=== PATIENT | female | born 1990 | race Caucasian/White ===

== ENCOUNTER 2017-01-23 18:58 | Inpatient (IN) | payer MEDICAID ==
[~2017-01-23] VITALS: Ht 170.2 cm; Wt 145.2 kg
--- NOTE | ~2017-01-23 | DS ---
PATIENT'S NAME: CARMITA COOLEY [facility] AGE: 26 Y [address] ROOM: [id number] [place], [place] [address] LOCATION: GPED ADMIT DATE: 01/23/2017 Discharge Summary DISCHARGE DATE: 01/26/2017 FAMILY PHYSICIAN: Physician, Unknown ATTENDING PHYSICIAN: David Umana CONSULTING PHYSICIAN: Eulalia Bartlett MD. DISCHARGE DIAGNOSES: 1. Choledocholithiasis. 2. Abdominal pain secondary to choledocholithiasis. 3. Transaminitis secondary to choledocholithiasis. 4. Hypokalemia. 5. Urinary tract infection. 6. Hypercholesterolemia. 7. Morbid obesity. 8. Gastroesophageal reflux disease. 9. Depression. HOSPITAL COURSE: Please refer to admitting history and physical as dictated by Dr. Umana. Briefly, the patient was admitted to [facility] after she had recently had a cholecystectomy done on 01/20/2017 at [facility]. She was discharged home. She was have increasing abdominal pain. She was, therefore, admitted to [facility] for further GI evaluation. The patient was started on ertapenem 1 g IV q.24 hours. Percocet was used for pain control. She was started on IV fluids. She did have some complaints of chest pain, this was relieved by a GI cocktail. CT scan PE protocol was negative for PE. She was placed on Lovenox for DVT prophylaxis. Dr. Bartlett was consulted. She was made n.p.o. She underwent ERCP on 01/25/2017. She underwent biliary sphincterotomy with balloon sweep and removal of multiple large cholesterol stones. She was given Indocin suppository while in recovery. She was hydrated with lactated Ringer's. Post ERCP, she had no further abdominal pain or nausea. Her she did have a bowel movement. She felt much better. The following day, her liver enzymes did improve. Bilirubin peaked at 6.5, on the day of discharge 1.9; AST 154; ALT 322. Her potassium did need to be replaced p.o. at times throughout her stay, on the day of discharge3.7. WBCs 11.4. Her vital signs were stable. She was on room air. Lipid panel was done prior to discharge, it did reveal a total cholesterol of 255, triglycerides 83, HDL 43, LDL 196. She was placed on Lipitor 40 mg p.o. q.h.s. with a followup lipid panel in 6 weeks with her primary care provider. She also did meet with the dietitian regarding low-fat, low-cholesterol diet teaching prior to her discharge. On 01/26/2017, the patient's vital signs were stable. She had improved. She had no further abdominal pain. She should follow up with primary care provider in 3 days. I did call and speak with Dr. Payne prior to the patient's PATIENT'S NAME: CARMITA COOLEY [facility] AGE: 26 Y [address] ROOM: [address] [place] [id number] LOCATION: GPED ADMIT DATE: 01/23/2017 Discharge Summary DISCHARGE DATE: 01/26/2017 FAMILY PHYSICIAN: Physician, Unknown ATTENDING PHYSICIAN: David Umana A discharge, as he is whom she had chosen for followup care. LABORATORY DATA: Sodium remained stable at 138 to 140, potassium ranged from 3.5 to 3.8, calcium 8.6, BUN 11 to 7, creatinine 0.8 upon admit and 0.7 prior to discharge. Total bilirubin upon admit 5.5, it did reach as high as 6.5, was 1.9 prior to discharge. Alkaline phosphatase 621 upon admit, prior to discharge 573. AST 240 upon admit, it did increase to 313, prior to discharge 154. ALT 391 upon admit, at its peak 401, was 322 prior to discharge. GFR remained greater than 60. Lipid panel, please refer to hospital course. WBCs upon admit 11.0, prior to discharge 11.4; hemoglobin 10.2 to 11.9; hematocrit 31.4 to 37.0; platelets remained stable at 232. Urine; leukocytes negative, nitrites negative, ketones 15, blood negative. RADIOLOGY REPORTS: CT of the chest done for PE protocol revealed no CT findings of pulmonary embolism, dependent atelectasis at left lung base. CT scan of the abdomen and pelvis shows postop changes of recent gallbladder resection, fluid and streaky increased attenuation in the mesentery of the gallbladder fossa in the area of the duodenum consistent with recent surgery, no walled-off abscess collection. Intrahepatic and extrahepatic biliary dilation, common bile duct did measure 13 mm, no stones are identified in the common bile duct on the CT scan. Ultrasound of the abdomen revealed surgically absent gallbladder and intrahepatic and extrahepatic biliary dilation with no common bile duct stones seen. DISCHARGE INSTRUCTIONS: The patient will be discharged to home. Diet; low fat, low cholesterol. Follow up with Dr. Payne in 3 days with CBC and CMP at that time. Activity, as tolerated. DISCHARGE MEDICATIONS: 1. K-Tab 10 mEq p.o. daily. 2. Protonix 40 mg p.o. at bedtime. 3. Feosol 325 mg p.o. daily. 4. Lexapro 5 mg 1 tablet p.o. daily. 5. Lipitor 40 mg p.o. q.h.s. 6. Percocet 5/325 one tablet p.o. every 6 hours as needed for severe pain. Fasting lipid panel in three months, 04/28/2017. Thank you for allowing us to participate in the care of this patient as she has been hospitalized at [facility]. Time spent at the bedside as well as coordinating care 35 minutes. [facility] 26 [facility] [address] ROOM: [place] [address] LOCATION: GPED ADMIT DATE: 01/23/2017 Discharge Summary DISCHARGE DATE: 01/26/2017 FAMILY PHYSICIAN: Physician, Unknown ATTENDING PHYSICIAN: David Umana DENI NARANJO APRN FOR MD FAISAL OSMAN/deisyl /[id number] CC: MD Frankie De La Paz MD d: 01/27/17 0249 t: 02/01/17 0831, DISCHARGE SUMMARY
--- NOTE | ~2017-01-23 | HP ---
PATIENT'S NAME: LYNDA COOLEYOSHA Delta [facility] AGE: 26 Y [address] ROOM: [place] [address] LOCATION: GPED ADMIT DATE: 01/23/2017 History & Physical DISCHARGE DATE: FAMILY PHYSICIAN: PHYSICIAN, UNKNOWN ATTENDING PHYSICIAN: CARLOS KERR DATE OF SERVICE: 01/23/2017 CHIEF COMPLAINT: Abdominal pain. HISTORY OF PRESENT ILLNESS: This is a 26-year-old morbidly obese lady with a past medical history of iron- deficiency anemia, recently had cholecystectomy done on 01/20/2017 at [facility]. Postprocedure, she was discharged to home, but she continued to have abdominal pain, which necessitated a visit to emergency department at the same hospital. A CAT scan at that point was done and she was discharged home. She was also found to have a urinary tract infection with E. coli and was being treated with Ciprofloxacin. Her symptoms continued to get worse in terms of increasing abdominal pain, which is located in the epigastric as well as right upper quadrant, sharp in character, present all the time, 05/23, associated with nausea and vomiting and multiple episodes of nonbilious nonbloody emesis today. She denied having fever, chills, or dizziness. She did endorse running sharp chest pain as well when she gets the right upper quadrant pain. She did not have any extremity swelling, but did endorse having burning on urination and difficulty urinating and inability to empty her bladder as well. REVIEW OF SYSTEMS: All other systems reviewed and were negative except what is mentioned in the HPI. ALLERGIES: THE PATIENT DOES NOT HAVE KNOWN DRUG ALLERGIES. SHE STATES SHE WAS ITCHING AFTER SHE GOT MORPHINE LAST TIME. PAST MEDICAL HISTORY: Iron-deficiency anemia, hypokalemia, recent cholecystectomy, and morbid obesity. MEDICATIONS: Usually she receives KCl as well as iron pills at home. Recently, she had been getting ciprofloxacin for her UTI. SOCIAL HISTORY: PATIENT'S NAME: LYNDA COO[facility]YR [facility] AGE: 26 Y [address] ROOM: [place] [address] LOCATION: GPED ADMIT DATE: 01/23/2017 History & Physical DISCHARGE DATE: FAMILY PHYSICIAN: PHYSICIAN, UNKNOWN ATTENDING PHYSICIAN: CARLOS KERR Smokes 4 to 5 cigarettes a day for the past 4 years. No alcohol or drug abuse. FAMILY HISTORY: Positive for hypertension in father. PHYSICAL EXAMINATION: VITAL SIGNS: Blood pressure 112/81, 16, afebrile, 72. GENERAL: In mild acute distress due to pain. Alert and oriented x3. HEENT: Head: Atraumatic and normocephalic. Eyes: Nonicteric. No pallor. Oropharynx: Moist mucous membranes. CARDIOVASCULAR: S1 and S2. No murmurs, gallops, or rubs. LUNGS: Clear to auscultation bilaterally. ABDOMEN: Soft. Laparoscopic incision aguilera noted. Mild tenderness in the right upper quadrant. Bowel sounds are present. EXTREMITIES: No cyanosis, clubbing, or edema. SKIN: Multiple tattoos noted. No rashes noted. PSYCH: Normal affect, mood, and speech. NEURO: Cranial nerves II through XII intact. No motor or sensory deficit. MUSCULOSKELETAL: No muscle tenderness or joint swelling noted. CT scan was again performed here at the [facility], which showed changes consistent with a recent cholecystectomy as well as mild biliary dilatation. No pulmonary embolism was found as it was one of the suspicion by the emergency physician. Lab work was done in the emergency department, which showed rising liver enzymes as compared to the lab work obtained 2 days ago at the [facility] Emergency Department with alkaline phosphatase of 621 today. AST and ALT 240 and 391 respectively with bilirubin of 5.5. She had bilirubin 3.7 two days ago, alkaline phosphatase of 341 with AST and ALT of 190 and 301. Lipase and amylase levels were checked, which were negative. ASSESSMENT: 1. Elevated liver enzymes. 2. Likely biliary obstruction. 3. Iron-deficiency anemia. 4. Morbid obesity. 5. Urinary tract infection. PLAN: We are going to admit this patient and start some intravenous fluid resuscitation. Given the low sensitivity of CAT scan to diagnose biliary obstruction as well as choledocholithiasis, we are going to perform right upper quadrant scan tonight. Based on that, we will consult Gastroenterology. PATIENT'S NAME: CARMITA COOLEY [facility] AGE: 26 Y [address] ROOM: [place] [address] LOCATION: [facility] ADMIT DATE: 01/23/2017 History & Physical DISCHARGE DATE: FAMILY PHYSICIAN: PHYSICIAN, UNKNOWN ATTENDING PHYSICIAN: CARLOS KERR Serial monitoring of the lab work will be done. We will provide adequate analgesia. Likelihood of cholangitis is low at this point. I am going to start her on IV antibiotics for her urinary tract infection, though urinalysis is now negative as compared to 2 days ago. DVT prophylaxis with Lovenox. SCDs. The patient is full code. MD ILIANA BARR/holland /[id number] D: 253 T: 811 HISTORY & PHYSICAL
--- NOTE | ~2017-01-23 | CON ---
PATIENT'S NAME: CAROLE GIMENEZ [facility] AGE: 26 Y [address] ROOM: [place] [id number] LOCATION: GPED ADMIT DATE: 01/23/2017 Consultation DISCHARGE DATE: FAMILY PHYSICIAN: PHYSICIAN, UNKNOWN ATTENDING PHYSICIAN: CARLOS KERR REASON FOR CONSULT: ERCP. HISTORY OF PRESENT ILLNESS: Caorle Gimenez is a 26-year-old obese female who was admitted in view of persistent nausea, vomiting, abdominal pain, status post lap reji done in [place] on January 20. The patient presented to her local emergency room whereby she was discharged, and in view of persistent symptoms, ended up at this hospital. She was addressed by the hospitalist and was found to have UTI, placed on antibiotics. Total bilirubin was found to be 5.5, with elevated AST/ALT of 240 and [address] scan of the abdomen revealed evidence of post cholecystectomy state with evidence of fluid in the gallbladder fossa without any definitive biloma or abscess; however, her common bile duct was dilated at 12 mm, and therefore, I was consulted in regard to possibility of choledocholithiasis. The patient has had ongoing symptoms with abdominal discomfort, some chest discomfort, and appropriate studies have excluded any cardiopulmonary etiology. PAST MEDICAL HISTORY: Otherwise unremarkable except for morbid obesity. PAST SURGICAL HISTORY: Recent lap reji, remote tonsillectomy. MEDICATIONS AT HOME: 1. Potassium. 2. "Iron pills.". 3. Presently placed on antibiotics and pain medications. ALLERGIES: STATED TO CODEINE. SOCIAL HISTORY: Smokes half pack per day for the last 4 to 5 years. Denies alcohol use. FAMILY HISTORY: High blood pressure. REVIEW OF SYSTEMS: The 10-point review of system otherwise negative. PATIENT'S NAME: CAROLE GIMENEZ [facility] AGE: 26 Y [address] ROOM: [address] [address] LOCATION: GPED ADMIT DATE: 01/23/2017 Consultation DISCHARGE DATE: FAMILY PHYSICIAN: PHYSICIAN, UNKNOWN ATTENDING PHYSICIAN: CARLOS KERR PHYSICAL EXAMINATION: GENERAL: Well-developed well-nourished female, in no acute distress. She is sitting upright, alert and oriented. HEENT: Nonicteric sclerae. Pupils round and reactive. NECK: Supple without palpable nodes. CHEST: Clear to auscultation. HEART: S1 and S2 normal. ABDOMEN: Obese with mild diffuse tenderness. Evidence of recent laparoscopy cholecystectomy. Bowel sounds are decreased. EXTREMITIES: No edema. NEUROLOGIC: Awake, alert, appropriate without any focal deficits. LABS: CT scan and abdominal ultrasound as noted above. ASSESSMENT AND PLAN: A 26-year-old female presenting with abdominal pain, nausea, vomiting, and jaundice with elevated transaminases as well as abdominal ultrasound and CT scan of the abdomen showing dilated common bile duct at 12 mm with evidence of fluid collection in the gallbladder fossa. Considerations include possibility of bile like in association with choledocholithiasis. The patient is agreeable to undergo ERCP. Procedure risks, complications are discussed. Possibility of biliary stent is discussed. Thank you for this consult. JOSÉ MCKNIGHT MD AM/holland /[id number] d: 01/24/17 2257 t: 01/25/17 0811, CONSULTATION REPORT
--- NOTE | ~2017-01-23 | ER ---
[facility] AGE: 26 Y [address] ROOM: [place] [address] LOCATION: GPED ADMIT DATE: 01/23/2017 ER/Outpatient Report DISCHARGE DATE: FAMILY PHYSICIAN: PHYSICIAN, UNKNOWN ATTENDING PHYSICIAN: CARLOS UMANA Time of Arrival: 1858 hours. Time of Evaluation: 1920 hours. CHIEF COMPLAINT: This is a 26-year-old female previously reasonably healthy. She is in with complaint of chest pain, abdominal pain and shortness of breath after cholecystectomy. HISTORY OF PRESENT ILLNESS: She reports that she had a laparoscopic cholecystectomy 3 days ago, was discharged subsequent to that. She was readmitted due to vomiting, increasing abdominal pain, increasing liver enzymes. She is discharged earlier today from the [facility] and presented herself here because she states she began vomiting essentially at the time of her discharge. PAST MEDICAL HISTORY: She has no chronic medical problems. CURRENT MEDICATIONS: See list. REVIEW OF SYSTEMS: Otherwise negative. SOCIAL HISTORY: She is a nonsmoker. PHYSICAL EXAMINATION: GENERAL: Alert, obese female who appeared to be quite uncomfortable. She is tachycardic and tachypneic in moderate distress. SKIN: Warm and dry. Color is pale. She is hypertensive. HEAD, EARS, EYES, NOSE, AND THROAT: Revealed mild scleral icterus, otherwise normal. NECK: Supple. HEART: Normal. LUNGS: Normal. ABDOMEN: Quite tender diffusely. Her incisions were clean and dry. Bowel sounds are present, but diminished. EXTREMITIES: Normal. NEUROLOGIC: Normal. [facility]GE[facility] 26 Y [address] ROOM: [address] [address] LOCATION: GPED ADMIT DATE: 01/23/2017 ER/Outpatient Report DISCHARGE DATE: FAMILY PHYSICIAN: PHYSICIAN, UNKNOWN ATTENDING PHYSICIAN: CARLOS UMANA LABORATORY DATA: Metabolic panel revealed elevated bilirubin of greater than 5. Liver enzymes were also elevated. ASSESSMENT: Postoperative abdominal pain/probable retained common bile duct stone. PLAN: Admit to Dr. Umana. Dr. Umana was called, who arrived promptly, evaluated the patient and made arrangements to admit the patient. MD JULIETTE VOGEL/modl /[id number] d: 01/24/17 0819 t: 02/21/17 0957, OUTPATIENT REPORT
[2017-01-23 19:33] LABS: BILIRUBIN URINE NEGATIVE (NEGATIVE); BLOOD URINE NEGATIVE /UL (NEGATIVE); COLOR URINE YELLOW (YELLOW); GLUCOSE URINE NEGATIVE (NEGATIVE); KETONE URINE 15 mg/dL (NEGATIVE); LEUKOCYTES URINE NEGATIVE /UL (NEGATIVE); NITRITE URINE NEGATIVE (NEGATIVE); PROTEIN URINE NEGATIVE (NEGATIVE); TURBIDITY URINE CLEAR (CLEAR); UROBILINOGEN URINE NORMAL (NORMAL)
[2017-01-23 19:39] LABS: BASOPHIL % 0.4 %; EOSINOPHIL # 0.1 K/uL (0.0-0.5); EOSINOPHIL % 0.9 %; HEMOGLOBIN 11.9 g/dL (11.0-15.0); IMMATURE GRANULOCYTE # 0.1 K/uL (0.0-0.3); IMMATURE GRANULOCYTE % 0.5 %; LYMPHOCYTE # 1.9 K/uL (0.8-4.0); LYMPHOCYTE % 17.4 %; MCH 25.1 pg (27.0-34.0); MCHC 32.2 gm/dL (32.0-36.5); MCV 78.1 fl (83.0-98.0); MONOCYTE # 0.6 K/uL (0.0-1.0); MONOCYTE % 5.4 %; MPV 11.9 fl (9.4-12.4); NEUTROPHIL # (ANC) 8.3 K/uL (1.8-7.8); NEUTROPHIL % 75.4 %; NRBC % 0 /100WBC (0-0.00); PLATELET COUNT 309 K/uL (150-450); RBC 4.74 M/uL (3.50-5.00); RDW-CV 19.3 % (11.9-14.6)
[2017-01-23 19:55] LABS: ALBUMIN 3.3 gm/dL (3.5-5.0); ANION GAP 14.6 (10.0-19.0); AST 240 IU/L (10-40); BLOOD UREA NITROGEN 7 mg/dL (6-24); CALCIUM 9.2 mg/dL (8.5-10.5); CHLORIDE 102 mMol/L (96-110); CO2 25 mMol/L (22-32); CREATININE 0.8 mg/dL (0.5-1.1); ESTIMATED GFR (MDRD EQUATION) > 60; POTASSIUM 3.6 mMol/L (3.7-5.1); SODIUM 138 mMol/L (135-145); TOTAL BILIRUBIN 5.5 mg/dL (0.0-1.5); TOTAL PROTEIN 7.9 g/dL (6.0-8.4)
[2017-01-23 20:03] LABS: ALK PHOS 621 IU/L (33-138); ALT 391 IU/L (12-78)
--- NOTE | 2017-01-23 23:50 | NUR ---
Patient just had gallbladder removed in [place] on the 8th. Sent home the same day but developed nausea, vomiting and abdominal pain with feelings of shortness of breath. States she has a UTI. Went to the ER there twice for medications and fluids. Came in to ER here this evening with same complaints. Stated she has vomited x8 today with nausea and one bloody emesis, has not been able to eat for 4 days with an 18lb weight loss since surgery. Probable stone. History of depression, anxiety, PTSD, and ADHD. States she was supposed to have a med appt at [facility] in [facility] but states she only takes potassium at home. Has 3 children. GI consult in am for possible ERCP.
[2017-01-24] MEDS ORDERED: FEOSOL325 MG PO (00:43)
[2017-01-24] MEDS ORDERED: K-TAB ER20 MEQ PO (00:43)
--- NOTE | 2017-01-24 03:39 | NUR ---
Significant Event: Patient alert and oriented x3. Gets up with standby assist. Slightly hypertensive but other vitals stable. Reports shortness of breath at rest, lungs clear to clear/dim, and no cough heard. NS running through right upper arm midline with good blood return. Has 4 healed incisions to abdomen. Bowel sounds rare, guarding present, not passing gas. Reports nausea but no emesis and nothing given. Pt has aching type pain all over abdomen but more so in the LUQ and RLQ with some epigastric pain. Magic mouthwash given. 1mg morphine and 1 percocet given since being admitted with pain rating 6-8/10 but has been resting and sleeping. Appears anxious at times. Cooperative with cares Follow up: GI consult today for possible ERCP, RUQ scan to be done this evening, monitor pain, NPO except for meds
[2017-01-24 06:16] LABS: BASOPHIL % 0.2 %; EOSINOPHIL # 0.1 K/uL (0.0-0.5); EOSINOPHIL % 1.6 %; HEMOGLOBIN 10.7 g/dL (11.0-15.0); IMMATURE GRANULOCYTE % 0.3 %; LYMPHOCYTE # 1.7 K/uL (0.8-4.0); LYMPHOCYTE % 18.3 %; MCH 25.4 pg (27.0-34.0); MCHC 32.4 gm/dL (32.0-36.5); MCV 78.4 fl (83.0-98.0); MONOCYTE # 0.6 K/uL (0.0-1.0); MONOCYTE % 6.4 %; MPV 11.9 fl (9.4-12.4); NEUTROPHIL # (ANC) 6.6 K/uL (1.8-7.8); NEUTROPHIL % 73.2 %; NRBC % 0 /100WBC (0-0.00); PLATELET COUNT 248 K/uL (150-450); RBC 4.21 M/uL (3.50-5.00); RDW-CV 19.6 % (11.9-14.6)
[2017-01-24 06:36] LABS: ALBUMIN 2.7 gm/dL (3.5-5.0); ANION GAP 12.8 (10.0-19.0); AST 313 IU/L (10-40); BLOOD UREA NITROGEN 7 mg/dL (6-24); CALCIUM 8.7 mg/dL (8.5-10.5); CHLORIDE 104 mMol/L (96-110); CO2 25 mMol/L (22-32); CREATININE 0.7 mg/dL (0.5-1.1); POTASSIUM 3.8 mMol/L (3.7-5.1); SODIUM 138 mMol/L (135-145); TOTAL BILIRUBIN 5.8 mg/dL (0.0-1.5); TOTAL PROTEIN 6.6 g/dL (6.0-8.4)
[2017-01-24 06:39] LABS: ALK PHOS 578 IU/L (33-138); ALT 396 IU/L (12-78); ESTIMATED GFR (MDRD EQUATION) > 60
[2017-01-24] MEDS ORDERED: BACTRIM DS1 TAB PO (08:30)
[2017-01-24] MEDS ORDERED: LEXAPRO20 MG PO (08:31)
--- NOTE | 2017-01-24 18:00 | NUR ---
Significant Event: Abdomen is soft. Scabbed incision sites x4 without redness. Complains of right upper quadrant pain and some epigastric pain. Percocet 2 tabs given last at 1800 and Zofran given prior to the percocet for nausea. She reports the GI cocktail really helped last night and the tight feeling in chest is gone. Lungs clear in the upper lobes and clear/diminished in the bases. VSS on room air, no cough. RT instructed in use of IS. Taking clear liquids without vomiting. Urine is a dark fabiola. Dr Sequeira in and discussed procedure with patient. Follow up:NPO after MN for procedure in am.
--- NOTE | 2017-01-25 03:04 | NUR ---
Significant Event:PT AAOX3.PLEASANT WITH STAFF AND CARES.UP WITH STAND BY ASSIST.GAIT STEADY.USES CALL LIGHT APPROP.COMPLAIN OF NASUEA, PRN ZOFRAN GIVEN LAST AT 2400,PT HAS BEEN SLEEPING SINCE THAT TIME. MIDLINE TO RIGHT UPPER AR. RUNNING LR AT 125ML/HR WHICH WILL BE CHANGED TO 200ML/HR AT 0800.PT TAKES MEDICATION WHOLE WITH NO COMPLICATIONS.VSS.INCSION TO ABDOMEN X4 SITES.OPEN TO AIR WITH NO COMPLICAITONS NOTED. PT URINE VERY DARK TEA COLORED.DID HAVE SMALL BM AT HS. NPO SINCE 2400 LAST NIGHT. VSS.LS CLEAR/DIMINISHED. Follow up:ERCP TOMORROW AM.
[2017-01-25 06:29] LABS: BASOPHIL % 0.5 %; EOSINOPHIL # 0.2 K/uL (0.0-0.5); EOSINOPHIL % 2.8 %; HEMATOCRIT 31.8 % (33.0-46.0); HEMOGLOBIN 10.3 g/dL (11.0-15.0); IMMATURE GRANULOCYTE % 0.3 %; LYMPHOCYTE # 1.9 K/uL (0.8-4.0); LYMPHOCYTE % 23.7 %; MCH 25.2 pg (27.0-34.0); MCHC 32.4 gm/dL (32.0-36.5); MCV 77.8 fl (83.0-98.0); MONOCYTE # 0.6 K/uL (0.0-1.0); MONOCYTE % 6.9 %; MPV 12.2 fl (9.4-12.4); NEUTROPHIL # (ANC) 5.3 K/uL (1.8-7.8); NEUTROPHIL % 65.8 %; NRBC % 0 /100WBC (0-0.00); PLATELET COUNT 227 K/uL (150-450); RBC 4.09 M/uL (3.50-5.00); RDW-CV 20.1 % (11.9-14.6)
[2017-01-25 06:40] LABS: ALBUMIN 2.5 gm/dL (3.5-5.0); ANION GAP 13.5 (10.0-19.0); AST 298 IU/L (10-40); BLOOD UREA NITROGEN 7 mg/dL (6-24); CALCIUM 8.6 mg/dL (8.5-10.5); CHLORIDE 104 mMol/L (96-110); CO2 26 mMol/L (22-32); CREATININE 0.6 mg/dL (0.5-1.1); ESTIMATED GFR (MDRD EQUATION) > 60; POTASSIUM 3.5 mMol/L (3.7-5.1); SODIUM 140 mMol/L (135-145); TOTAL BILIRUBIN 6.5 mg/dL (0.0-1.5); TOTAL PROTEIN 6.3 g/dL (6.0-8.4)
[2017-01-25 06:44] LABS: ALK PHOS 662 IU/L (33-138); ALT 401 IU/L (12-78)
--- NOTE | 2017-01-25 16:12 | NUR ---
Met with patient at bedside today. Introduced myself and the role of the CM department. Patient was independent with her ADL's prior to this hospitalization. She does not anticipate having any discharge needs. Will continue to follow.
--- NOTE | 2017-01-26 05:11 | NUR ---
Significant Event:Ambulated in halls last evening with standby assist. Steady on feet. Ate all of supper & hs snacks. Is slightly jaundice & sclera are jaundiced. Has the 4 healing scabbed sites to her abdomen. Voids tea colored urine. Did take 2 Percocet this morning @ 0323 & appears to be resting well now.
[2017-01-26 05:56] LABS: BASOPHIL % 0.4 %; EOSINOPHIL # 0.2 K/uL (0.0-0.5); EOSINOPHIL % 1.7 %; HEMATOCRIT 31.4 % (33.0-46.0); HEMOGLOBIN 10.2 g/dL (11.0-15.0); IMMATURE GRANULOCYTE # 0.1 K/uL (0.0-0.3); IMMATURE GRANULOCYTE % 0.5 %; LYMPHOCYTE # 2.5 K/uL (0.8-4.0); LYMPHOCYTE % 21.6 %; MCH 25.5 pg (27.0-34.0); MCHC 32.5 gm/dL (32.0-36.5); MCV 78.5 fl (83.0-98.0); MONOCYTE # 0.8 K/uL (0.0-1.0); MPV 11.6 fl (9.4-12.4); NEUTROPHIL # (ANC) 7.8 K/uL (1.8-7.8); NEUTROPHIL % 68.8 %; NRBC % 0 /100WBC (0-0.00); PLATELET COUNT 232 K/uL (150-450); RDW-CV 20.4 % (11.9-14.6); WBC 11.4 K/uL (4.0-11.0)
[2017-01-26 06:13] LABS: ALBUMIN 2.5 gm/dL (3.5-5.0); ANION GAP 11.7 (10.0-19.0); AST 154 IU/L (10-40); CALCIUM 8.6 mg/dL (8.5-10.5); CHLORIDE 105 mMol/L (96-110); CO2 26 mMol/L (22-32); CREATININE 0.7 mg/dL (0.5-1.1); ESTIMATED GFR (MDRD EQUATION) > 60; POTASSIUM 3.7 mMol/L (3.7-5.1); SODIUM 139 mMol/L (135-145); TOTAL PROTEIN 6.4 g/dL (6.0-8.4)
[2017-01-26 06:16] LABS: ALK PHOS 573 IU/L (33-138); ALT 322 IU/L (12-78); BLOOD UREA NITROGEN 11 mg/dL (6-24); TOTAL BILIRUBIN 1.9 mg/dL (0.0-1.5)
[2017-01-26] MEDS ORDERED: PROTONIX40 MG PO (10:03)
[2017-01-26] MEDS ORDERED: PERCOCET 5-3251 EACH PO (10:05)
[2017-01-26] MEDS ORDERED: LIPITOR40 MG PO (10:06)
--- NOTE | 2017-01-26 11:35 | NUR ---
CONSULT RECEIVED FOR LOW FAT, LOW CHOLESTEROL DIET ED. DISCUSSED WAYS TO DECREASE FAT AND CHOLESTEROL INTAKE. DISCUSSED LOWER FAT & CHOLESTEROL FOODS. PROVIDED WRITTEN INFO AND RD CONTACT INFO. ENC TO CALL WITH QUESTIONS. WILL ASSIST NEEDED.
--- NOTE | 2017-01-26 13:27 | NUR ---
Met with patient this morning as there was concern that she lost her Medicaid and she has a number of medications that she needs to stay on. When I met with her she informed me and Janine Crowe that she got her Medicaid situation figured out and will be able to get her medications without any problems. Patient will be discharging to home this afternoon.
--- NOTE | 2017-01-26 19:58 | NUR ---
Significant event: Ambulating in vyas. Voiding large amounts of urine. eating and drinking well. Denies pain and nausea. Dimsissal instructions given and dismissed to home.
--- NOTE | 2017-01-26 20:03 | NUR ---
D: IV discontinued per Lenin Huntley RN without difficlutly.
[2017-06-03] MEDS ORDERED: AMOXICILLIN250 MG PO (11:20)
[2017-06-03] MEDS ORDERED: PROZAC10 MG PO (11:21)
[2017-06-03] MEDS ORDERED: PRENATAL 1+1)(P1 TAB PO ×2 (11:21→11:22)
== END 2017-01-26 15:10 | disposition disaster alternative care site (69) | DRG 445 ==
LOC: GMED 18:58 → G3N 21:41 → GPED 21:41
PROVIDERS: Emergency Medicine; Nurse Practitioner Family; ADMIT Internal Medicine
PROC: 0FC98ZZ Extirpation of Matter from Common Bile Duct, Via Natural or Artificial Opening Endoscopic (ICD-10-PCS; principal; 2017-01-25)
DX: K80.50 Calculus of bile duct without cholangitis or cholecystitis without obstruction (principal); N39.0 Urinary tract infection, site not specified; Z68.43 Body mass index [BMI] 50.0-59.9, adult; J98.11 Atelectasis; E66.01 Morbid (severe) obesity due to excess calories; R74.0 Nonspecific elevation of levels of transaminase and lactic acid dehydrogenase [LDH]; D50.9 Iron deficiency anemia, unspecified; E87.6 Hypokalemia; B96.20 Unspecified Escherichia coli [E. coli] as the cause of diseases classified elsewhere; E78.00 Pure hypercholesterolemia, unspecified; K21.9 Gastro-esophageal reflux disease without esophagitis; F32.9 Major depressive disorder, single episode, unspecified; Z90.49 Acquired absence of other specified parts of digestive tract
CPT/HCPCS: C1751; C1769; J1100; J1170; J1335; J1650; J2270; J2405; J2765; J3010; J7120; Q9967

== ENCOUNTER 2017-02-06 15:04 | Emergency (ER) | payer MEDICAID ==
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
[~2017-02-06 15:04] MED LIST: BACTRIM DS1 TAB PO; FEOSOL325 MG PO; K-TAB ER20 MEQ PO; LEXAPRO20 MG PO; LIPITOR40 MG PO; PERCOCET 5-3251 EACH PO; PROTONIX40 MG PO
[2017-06-03] MEDS ORDERED: AMOXICILLIN250 MG PO (11:20)
[2017-06-03] MEDS ORDERED: PROZAC10 MG PO (11:21)
[2017-06-03] MEDS ORDERED: PRENATAL 1+1)(P1 TAB PO ×2 (11:21→11:22)
== END 2017-02-06 16:16 | disposition disaster alternative care site (69) ==
LOC: GMED 15:04
DX: Z48.01 Encounter for change or removal of surgical wound dressing (principal); F17.210 Nicotine dependence, cigarettes, uncomplicated; Z88.8 Allergy status to other drugs, medicaments and biological substances; Z90.89 Acquired absence of other organs; Z98.890 Other specified postprocedural states

== ENCOUNTER 2017-04-28 18:14 | Emergency (ER) | payer MEDICAID ==
--- NOTE | ~2017-04-28 | ER ---
PATIENT'S NAME: CARMITA COOLEY [facility] AGE: 27 Y [address] ROOM: [place] [address] LOCATION: ED ADMIT DATE: 04/28/2017 ER/Outpatient Report DISCHARGE DATE: 04/28/2017 FAMILY PHYSICIAN: Frankie Payne MD ATTENDING PHYSICIAN: Trinity Clark HISTORY OF PRESENT ILLNESS: This is a 27-year-old female, who presents today with chief complaint of abdominal pain. She has had it since her surgery in January. She is status post cholecystectomy and it was complicated by a common bile duct stone. She states that she is feeling contractions in her left upper quadrant epigastric area. It is cramping, sharp, and feels full. She has had vomiting every 2 to 3 hours. She has been constipated for the last 3 days. She is allergic to Coumadin. She has been taking a lot of Percocet and tramadol for this gallbladder pain. Her current pain is 6/10. No fever or chills. No other complaints at this time. PAST MEDICAL HISTORY: Includes gallstones. SURGICAL HISTORY: Includes cholecystectomy, , tonsillectomy. SOCIAL HISTORY: She does not smoke cigarettes. She does marijuana and alcohol occasionally. MEDICATIONS: Please see med list. ALLERGIES: TO CODEINE. REVIEW OF SYSTEMS: Reviewed by me and negative with the exception of those discussed in HPI. PHYSICAL EXAMINATION: VITAL SIGNS: She is 5 feet 8 inches. She is 330 pounds. Blood pressure 125/90, heart rate 94, respiratory rate 18, saturations are 97% on room air, temperature is 97.6. GENERAL: The patient is morbidly obese. She does not appear in any acute distress. She walked into the ER. She is not actively vomiting or retching. She has moist mucous membranes. Does not appear lethargic or dehydrated. Alert and oriented x4. GCS is 15. HEART: Heart rate is regular rate and rhythm. LUNGS: Lung sounds are clear. PATIENT'S NAME: CARMITA COOLEY [facility] AGE: 27 Y [address] ROOM: [place] [address] LOCATION: [facility] ADMIT DATE: 04/28/2017 ER/Outpatient Report DISCHARGE DATE: 04/28/2017 FAMILY PHYSICIAN: Frankie Payne MD ATTENDING PHYSICIAN: Trinity Clark ABDOMEN: Morbidly obese. No epigastric tenderness. Some mild left upper quadrant tenderness. No right upper quadrant tenderness. No right lower quadrant tenderness. No left lower quadrant tenderness. No suprapubic tenderness. Negative Rogers sign. SKIN: Warm, dry, and intact, and she appears well. EMERGENCY ROOM COURSE: We gave the patient Zofran and Bentyl. We checked UA, urine , CBC, CMP, lactic, and procalcitonin. We did an x-ray. UA shows 100 leukocytes. Negative HCG. Lactic is 1.4. WBC is 7.1, H and H are 11.4/35.8, platelets are 234. No bandemia. No left shift. Sodium is 144, potassium 3.7, chloride 113, bicarb 25, anion gap 9.7, glucose 96, BUN 10, creatinine 0.8. Bilirubin is 0.2 which is improved from the 1.9 from when she was last time, alkaline phosphatase is 98, AST is 12, ALT is 17. GFR greater than 60. Lipase is 112. Procalcitonin is less than 0.05. We also did x-ray abdomen. It shows she has a lot of constipation, especially, in her left descending colon and the transverse colon with gas. There are no fluid levels. I think this is just an acute case of constipation, not bowel obstruction. We discussed this with the patient. We will give her some Zofran. We will also treat her with some Macrobid for UTI as she says she is symptomatic and told her to take some magnesium citrate and stop taking the narcotics. She will follow up with her primary care doctor as needed. IMPRESSION: Urinary tract infection, constipation. MD PATRICIA MILLIGAN/modl /[id number] d: 04/29/17 0343 t: 04/29/171955, OUTPATIENT REPORT
[2017-04-28 18:55] LABS: BASOPHIL % 0.3 %; EOSINOPHIL # 0.1 K/uL (0.0-0.5); EOSINOPHIL % 0.8 %; HEMATOCRIT 35.8 % (33.0-46.0); HEMOGLOBIN 11.4 g/dL (11.0-15.0); IMMATURE GRANULOCYTE % 0.1 %; LYMPHOCYTE % 27.8 %; MCH 26.1 pg (27.0-34.0); MCHC 31.8 gm/dL (32.0-36.5); MCV 81.9 fl (83.0-98.0); MONOCYTE # 0.5 K/uL (0.0-1.0); MONOCYTE % 6.8 %; MPV 11.7 fl (9.4-12.4); NEUTROPHIL # (ANC) 4.5 K/uL (1.8-7.8); NEUTROPHIL % 64.2 %; NRBC % 0 /100WBC (0-0.00); PLATELET COUNT 234 K/uL (150-450); RBC 4.37 M/uL (3.50-5.00); WBC 7.1 K/uL (4.0-11.0)
[2017-04-28 18:57] LABS: RDW-CV 15.3 % (11.9-14.6)
[2017-04-28 18:58] LABS: BLOOD URINE NEGATIVE /UL (NEGATIVE); COLOR URINE YELLOW (YELLOW); GLUCOSE URINE NEGATIVE (NEGATIVE); KETONE URINE 5 mg/dL (NEGATIVE); LEUKOCYTES URINE 100 /UL (NEGATIVE); NITRITE URINE NEGATIVE (NEGATIVE); PROTEIN URINE 15 mg/dL (NEGATIVE); SPEC GRAVITY URINE 1.025 (1.003-1.035); TURBIDITY URINE 1+ (CLEAR); UROBILINOGEN URINE 1 mg/dL (NORMAL)
[2017-04-28 19:06] LABS: BACTERIA URINE MODERATE (NEGATIVE); RBC URINE NEGATIVE #/HPF (NEGATIVE)
[2017-04-28 19:07] LABS: CRYSTALS URINE CALCIUM OXALATE (NEGATIVE)
[2017-04-28 19:14] LABS: ALK PHOS 98 IU/L (33-138); ALT 17 IU/L (12-78); ANION GAP 9.7 (10.0-19.0); AST 12 IU/L (10-40); BLOOD UREA NITROGEN 10 mg/dL (6-24); CALCIUM 8.5 mg/dL (8.5-10.5); CHLORIDE 113 mMol/L (96-110); CO2 25 mMol/L (22-32); CREATININE 0.8 mg/dL (0.5-1.1); ESTIMATED GFR (MDRD EQUATION) > 60; POTASSIUM 3.7 mMol/L (3.7-5.1); SODIUM 144 mMol/L (135-145); TOTAL PROTEIN 6.8 g/dL (6.0-8.4)
[2017-04-28 19:15] LABS: TOTAL BILIRUBIN 0.2 mg/dL (0.0-1.5)
[2017-06-03] MEDS ORDERED: AMOXICILLIN250 MG PO (11:20)
[2017-06-03] MEDS ORDERED: PRENATAL 1+1)(P1 TAB PO ×2 (11:21→11:22)
[2017-06-03] MEDS ORDERED: PROZAC10 MG PO (11:21)
== END 2017-04-28 19:41 | disposition disaster alternative care site (69) ==
LOC: GMED 18:14
PROVIDERS: Emergency Medicine
DX: N39.0 Urinary tract infection, site not specified (principal); K59.00 Constipation, unspecified; E66.01 Morbid (severe) obesity due to excess calories; Z98.890 Other specified postprocedural states; Z90.89 Acquired absence of other organs; Z90.49 Acquired absence of other specified parts of digestive tract; Z88.5 Allergy status to narcotic agent; Z79.899 Other long term (current) drug therapy
CPT/HCPCS: J0500